=== PATIENT | female | born 1950 ===

== ENCOUNTER 2019-10-29 15:15 | Inpatient (IN) | payer OTHER ==
[~2019-10-29] VITALS: Ht 162.6 cm; Wt 81.6 kg
[2019-10-30] MEDS ORDERED: VIVLODEX10 MG PO (09:23)
[2019-10-30] MEDS ORDERED: BACLOFEN10 MG PO (09:23)
[2019-10-30] MEDS ORDERED: ULTRAM50 MG PO (09:23)
[2019-10-30] MEDS ORDERED: AVAPRO300 MG PO (09:23)
[2019-11-05] MEDS ORDERED: DICLOFENAC SOD100 GM (08:57)
[2019-11-05] MEDS ORDERED: MELOXICAM15 MG PO (08:57)
== END 2019-11-09 17:29 | DRG 470 ==
LOC: SURH 11-05 05:20 → O/R 11-05 05:20 → SURH 11-05 07:00 → O/R 11-05 15:15 → SURH 11-05 15:40
PROVIDERS: ADMIT Orthopaedic Surgery
PROC: 0SRB0JZ Replacement of Left Hip Joint with Synthetic Substitute, Open Approach (ICD-10-PCS; principal; 2019-11-05 07:00)
PROC: 30233N1 Transfusion of Nonautologous Red Blood Cells into Peripheral Vein, Percutaneous Approach (ICD-10-PCS; 2019-11-06)
DX: M16.12 Unilateral primary osteoarthritis, left hip (principal); D62 Acute posthemorrhagic anemia; I10 Essential (primary) hypertension

== ENCOUNTER 2022-06-15 10:15 | Inpatient (IN) | payer OTHER ==
[~2022-06-15] VITALS: Ht 162.6 cm; Wt 72.1 kg
[~2022-06-15 10:15] MED LIST: AVAPRO300 MG PO; BACLOFEN10 MG PO; DICLOFENAC SOD100 GM; MELOXICAM15 MG PO; ULTRAM50 MG PO; VIVLODEX10 MG PO
[2022-06-15] MEDS ORDERED: BACLOFEN20 MG PO (14:09)
[2022-06-21] MEDS ORDERED: FAMOTIDINE40 MG (13:18)
[2022-06-21] MEDS ORDERED: OXYBUTYNIN CHLOR5 MG (13:18)
[2022-06-21] MEDS ORDERED: HYDRALAZINE HCL25 MG (13:18)
[2022-06-21] MEDS ORDERED: AMLODIPINE BESYL5 MG (13:18)
[2022-06-23] MEDS ORDERED: LOVENOX30 MG/0.3 SUBCUTANEO (12:02)
[2022-06-23] MEDS ORDERED: GABAPENTIN100 MG PO (12:02)
[2022-06-23] MEDS ORDERED: NORFLEX100MG PO (12:02)
[2022-06-23] MEDS ORDERED: OXYC1TAB9 PO (12:03)
== END 2022-06-23 16:16 | disposition designated cancer center or children's hospital (05) | DRG 470 ==
LOC: SURG 06-21 07:00 → PED 06-21 10:30 → O/R 06-21 10:30 → SURH 06-21 20:37 → O/R 06-21 20:54 → PED 06-22 11:50
PROVIDERS: ADMIT Orthopaedic Surgery; ATTEND Orthopaedic Surgery
PROC: 0SR90JZ Replacement of Right Hip Joint with Synthetic Substitute, Open Approach (ICD-10-PCS; principal; 2022-06-21 07:00)
DX: M16.11 Unilateral primary osteoarthritis, right hip (principal); D62 Acute posthemorrhagic anemia; E66.01 Morbid (severe) obesity due to excess calories; I10 Essential (primary) hypertension; Z96.641 Presence of right artificial hip joint